=== PATIENT | male | born 1935 | race Caucasian/White ===

== ENCOUNTER 2020-09-02 07:53 | Outpatient (CLI) | payer MEDICARE, OTHER ==
[2020-09-02 08:15] LABS: BASOPHILS # (AUTO) 0.1 10^3/uL (0.0-0.1); BASOPHILS % (AUTO) 0.7 %; EOSINOPHILS # (AUTO) 0.4 10^3/uL (0.0-0.7); EOSINOPHILS % (AUTO) 4.7 %; HGB - HEMOGLOBIN 11.8 g/dL (14.0-18.0); LYMPHOCYTES # (AUTO) 1.7 10^3/uL (1.5-3.5); LYMPHOCYTES % (AUTO) 18.3 %; MEAN CORPUSCULAR HEMOGLOBIN 28.1 pg (27.0-31.0); MEAN CORPUSCULAR HGB CONC 31.1 g/dL (32.0-36.0); MEAN CORPUSCULAR VOLUME 90.2 fL (80.0-94.0); MEAN PLATELET VOLUME 8.3 fL (7.4-11.4); MONOCYTES # (AUTO) 0.5 10^3/uL (0.0-1.0); MONOCYTES % (AUTO) 5.7 %; NEUTROPHILS # (AUTO) 6.3 10^3/uL (1.5-6.6); NEUTROPHILS % (AUTO) 69.9 %; PLT - PLATELET COUNT 247 10^3/uL (130-450); RED CELL DISTRIBUTION WIDTH 14.3 % (12.0-15.0); WHITE BLOOD COUNT 9.1 x10^3/uL (4.8-10.8)
[2020-09-02 08:34] LABS: ALBUMIN 3.7 g/dL (3.2-5.5); ALBUMIN/GLOBULIN RATIO 0.9 (1.0-2.2); ALKALINE PHOSPHATASE 61 IU/L (42-121); ALT ALANINE AMINOTRANSFERASE 12 IU/L (10-60); AST ASPARTATE AMINOTRANSFERASE 19 IU/L (10-42); BILIRUBIN,TOTAL 0.5 mg/dL (0.2-1.0); BUN - BLOOD UREA NITROGEN 15 mg/dL (6-20); CALCIUM 9.2 mg/dL (8.5-10.3); CARBON DIOXIDE - CO2 28 mmol/L (21-32); CHLORIDE 100 mmol/L (101-111); CHOL/HDL RATIO 3.4 (<5.0); CHOLESTEROL 141 mg/dL; CREATININE 0.8 mg/dL (0.6-1.2); GLUCOSE 114 mg/dL (70-100); HDL CHOLESTEROL 42 mg/dL; LDL CHOLESTEROL,CALCULATED 81 mg/dL; LDL/HDL RATIO 1.9 (<3.6); SODIUM 141 mmol/L (135-145); TOTAL PROTEIN 7.7 g/dL (6.7-8.2); VLDL CHOLESTEROL 18 mg/dL
[2020-09-02 12:10] LABS: HEMOGLOBIN A1c% 5.9 % (4.27-6.07)
== END 2020-09-02 07:54 | disposition home or self-care (01) ==
LOC: LAB 07:53
PROVIDERS: ATTEND Family Medicine
DX: I71.4 Abdominal aortic aneurysm, without rupture (principal); E05.90 Thyrotoxicosis, unspecified without thyrotoxic crisis or storm; E11.9 Type 2 diabetes mellitus without complications; I25.2 Old myocardial infarction; J18.9 Pneumonia, unspecified organism; I95.9 Hypotension, unspecified; I25.10 Atherosclerotic heart disease of native coronary artery without angina pectoris; J43.9 Emphysema, unspecified
CPT/HCPCS: 36415; 80053; 80061; 83036; 83721; 84443; 85025

== ENCOUNTER 2021-04-12 14:40 | Outpatient (CLI) | payer MEDICARE, OTHER | END 2021-04-12 14:41 | disposition critical access hospital (66) | LOC: EMS 14:40 | DX: R53.1 Weakness (principal) | CPT/HCPCS: A0425; A0427 ==

== ENCOUNTER 2021-04-12 15:05 | Inpatient (IN) | payer MEDICARE, OTHER ==
[2021-04-12] MEDS ORDERED: SODIUM CHLORIDE 0.9% 1,000 ML IV STA (15:33)
--- NOTE | 2021-04-12 15:36 | ED Physician Documentation ---
PD HPI ALTERED MENTAL STATUS - Stated complaint Stated Complaint: BP ISSUE - History obtained from History obtained from: Patient, Family ( by phone) - Additional information Additional information: Much of the history from by phone: confused since last night and slurred speech. Very tired. Low BP at [facility] about 90/40 Urine cath x 2-3 years. Colon CA with colostomy Not demented at baseline, but confused now since last night. Had "kidney infection" a few weeks ago tx with abx, but not sure what Meds Vit D glucophage lipitor AND zocor per prinivil 2.5 daily Toprol prilosec ASA Review of Systems Unable to obtain: Confused PD PAST MEDICAL HISTORY - Allergies Allergies/Adverse Reactions: Allergies Allergy/AdvReac Type Severity Reaction Status Date / Time codeine Allergy Unknown Verified 04/12/21 15:32 oxybutynin Allergy Unknown Verified 04/12/21 15:32 PD ED PE NORMAL - Vitals Vital signs reviewed: Yes - General General: Other (Alert and oriented to person and place but not time or events, frequent thick cough.) - HEENT HEENT: PERRL, EOMI - Neck Neck: Supple, no meningeal sign, No bony TTP - Cardiac Cardiac: RRR, No murmur - Respiratory Respiratory: No respiratory distress, Other (diminished at both bases) - Abdomen Abdomen: Non tender, Other (Colostomy left lower quadrants, Mchugh in place draining purulence urine.) - Back Back: No CVA TTP, No spinal TTP - Derm Derm: Normal color, Warm and dry - Extremities Extremities: No edema, No calf tenderness / cord - Neuro Eye Opening: Spontaneous Motor: Obeys Commands Verbal: Confused GCS Score: 14 Results - Vitals Vitals: Vital Signs - 24 hr 04/12/21 04/12/21 04/12/21 15:34 16:11 16:30 Temperature 37.9 C Heart Rate 99 99 108 H Respiratory 26 H 28 H 25 H Rate Blood Pressure 95/40 L 108/48 L 125/66 O2 Saturation 94 96 100 04/12/21 04/12/21 04/12/21 17:00 17:30 18:00 Temperature 38.5 C H Heart Rate 113 H 114 H 116 H Respiratory 24 28 H 29 H Rate Blood Pressure 100/60 121/62 111/59 L O2 Saturation 100 92 93 04/12/21 04/12/21 04/12/21 18:30 19:00 19:30 Temperature 37.9 C Heart Rate 109 H 107 H 109 H Respiratory 28 H 29 H 29 H Rate Blood Pressure 94/50 L 90/53 L 88/50 L O2 Saturation 100 98 92 Oxygen O2 Source Nasal cannula - Labs Labs: Laboratory Tests 04/12/21 04/12/21 04/12/21 15:50 15:55 15:55 WBC 20.9 H RBC 3.89 L Hgb 11.0 L Hct 34.7 L MCV 89.2 MCH 28.3 MCHC 31.7 L RDW 15.4 H Plt Count 157 MPV 8.7 Neut # (Auto) Not Reportable Lymph # (Auto) Not Reportable Woodson # (Auto) Not Reportable Eos # (Auto) Not Reportable Baso # (Auto) Not Reportable Absolute Nucleated RBC Not Reportable Total Counted 100 Band Neuts % (Manual) 3 Abnorm Lymph % (Manual) 0 Nucleated RBC % Not Reportable Neutrophils # (Manual) 19.6 H Lymphocytes # (Manual) 1.3 L Monocytes # (Manual) 0.0 Eosinophils # (Manual) 0.0 Basophils # (Manual) 0.0 Differential Comment MANUAL DIFFERENTIAL Platelet Estimate NORMAL (130-450,000) Platelet Morphology NORMAL APPEARANCE RBC Morph Micro Appear NORMAL APPEARANCE Sodium 132 L Potassium 5.0 Chloride 94 L Carbon Dioxide 24 Anion Gap 14.0 H BUN 36 H Creatinine 2.4 H Estimated GFR (MDRD) 26 L Glucose 130 H Lactic Acid Calcium 8.0 L Total Bilirubin 0.9 AST 30 ALT 16 Alkaline Phosphatase 63 Total Protein 6.8 Albumin 3.2 Globulin 3.6 Albumin/Globulin Ratio 0.9 L Urine Color ORANGE Urine Clarity HAZY Urine pH 5.5 Ur Specific [place] 1.015 Urine Protein Urine Glucose (UA) Urine Ketones Urine Occult Blood Urine Nitrite Urine Bilirubin NEGATIVE Urine Urobilinogen Ur Leukocyte Esterase Urine RBC 11-25 H Urine WBC >25 H Ur Squamous Epith Cells NONE SEEN Urine Bacteria Many H Urine Culture Comments INDICATED Nasal Adenovirus (PCR) Nasal B. parapertussis DNA (PCR) Nasal Coronavir 229E PCR Nasal Coronavir HKU1 PCR Nasal Coronavir NL63 PCR Nasal Coronavir OC43 PCR Nasal Enterovir/Rhinovir PCR Nasal Influenza B PCR Nasal Influenza A PCR Nasal Parainfluen 1 PCR Nasal Parainfluen 2 PCR Nasal Parainfluen 3 PCR Nasal Parainfluen 4 PCR Nasal RSV (PCR) Nasal B.pertussis DNA PCR Nasal C.pneumoniae (PCR) Augustine Human Metapneumo PCR Nasal M.pneumoniae (PCR) Nasal SARS-CoV-2 (PCR) 04/12/21 04/12/21 04/12/21 15:55 17:53 19:09 WBC RBC Hgb Hct MCV MCH MCHC RDW Plt Count MPV Neut # (Auto) Lymph # (Auto) Woodson # (Auto) Eos # (Auto) Baso # (Auto) Absolute Nucleated RBC Total Counted Band Neuts % (Manual) Abnorm Lymph % (Manual) Nucleated RBC % Neutrophils # (Manual) Lymphocytes # (Manual) Monocytes # (Manual) Eosinophils # (Manual) Basophils # (Manual) Differential Comment Platelet Estimate Platelet Morphology RBC Morph Micro Appear Sodium Potassium Chloride Carbon Dioxide Anion Gap BUN Creatinine Estimated GFR (MDRD) Glucose Lactic Acid 3.4 H* 3.3 H* Calcium Total Bilirubin AST ALT Alkaline Phosphatase Total Protein Albumin Globulin Albumin/Globulin Ratio Urine Color Urine Clarity Urine pH Ur Specific [place] Urine Protein Urine Glucose (UA) Urine Ketones Urine Occult Blood Urine Nitrite Urine Bilirubin Urine Urobilinogen Ur Leukocyte Esterase Urine RBC Urine WBC Ur Squamous Epith Cells Urine Bacteria Urine Culture Comments Nasal Adenovirus (PCR) NOT DETECTED Nasal B. parapertussis DNA (PCR) NOT DETECTED Nasal Coronavir 229E PCR NOT DETECTED Nasal Coronavir HKU1 PCR NOT DETECTED Nasal Coronavir NL63 PCR NOT DETECTED Nasal Coronavir OC43 PCR NOT DETECTED Nasal Enterovir/Rhinovir PCR NOT DETECTED Nasal Influenza B PCR NOT DETECTED Nasal Influenza A PCR NOT DETECTED Nasal Parainfluen 1 PCR NOT DETECTED Nasal Parainfluen 2 PCR NOT DETECTED Nasal Parainfluen 3 PCR NOT DETECTED Nasal Parainfluen 4 PCR NOT DETECTED Nasal RSV (PCR) NOT DETECTED Nasal B.pertussis DNA PCR NOT DETECTED Nasal C.pneumoniae (PCR) NOT DETECTED Augustine Human Metapneumo PCR NOT DETECTED Nasal M.pneumoniae (PCR) NOT DETECTED Nasal SARS-CoV-2 (PCR) NOT DETECTED - Rads (name of study) 1v chest Radiology: EMP read contemporaneously (NAD) CT KUB Radiology: EMP read contemporaneously PD MEDICAL DECISION MAKING - ED course ED course: CT KUB Mild to moderate right hydronephrosis and hydroureter without a cause of obstruction seen, bilateral perinephric fat stranding, mild atrophy of each kidney, bladder decompressed with Mchugh in place, bilobed AAA measuring 6.1 cm and 6 cm distally, 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 85 yo with transient hypotension and e/o sepsis with leukocytosis, lactic acidosis. CT KUB to eval for obstruction. Has AAA, needs f/u. Also mild to moderate right hydronephrosis of unclear etiology. Case d/w [facility] by phone. She reviewed prior records. No recent cultures. No prior imaging to give an acuity for the hydronephrosis. Suggests changing mchugh and empiric IV abx and only consider xfer if not improving. D/W with by phone, AAA is known and d/w it needs f/u [facility] surgery Dr. Escoto will admit - Critical Care Time(min): 45 Time Includes: Direct patient care, Review records, Reassess patient, Document care, Coordinate care, Medical consult, Family consult for tx dec Data interpretation: Labs, Pulse ox Procedures included in critical care time: Peripheral IV - Sepsis Event Sepsis Onset Date: 04/12/21 Sepsis Onset Time: 16:00 Current Stage of Sepsis: Sepsis Initial Hypotension: Not hypotensive Possible source of Sepsis: Genitourinary Mental/Cognitive Status: Confused, Lethargic Reason for not giving 30ml/kg crystalloid fluids: Not in septic shock Capillary refill: Less than 2 seconds Peripheral Pulse Strength: 2+ Slightly Diminished Peripheral Pulse Location: Radial Departure - Departure Disposition: 66 [facility] DC/Xfer Clinical Impression: KB (acute kidney injury) UTI (urinary tract infection) Qualifiers: Urinary tract infection type: catheter-associated UTI Indwelling urinary catheter type: indwelling urethral catheter Encounter type: initial encounter Qualified Code(s): T83.511A - Infection and inflammatory reaction due to indwelling urethral catheter, initial encounter Sepsis Qualifiers: Sepsis type: sepsis due to unspecified organism Sepsis acute organ dysfunction status: with acute organ dysfunction Severe sepsis acute organ dysfunction type: acute renal failure Acute renal failure type: unspecified AAA (abdominal aortic aneurysm) Qualifiers: Presence of rupture: without rupture Qualified Code(s): I71.4 - Abdominal aortic aneurysm, without rupture Condition: Serious
[2021-04-12 16:05] LABS: BASOPHILS % (AUTO) 0.2 %; EOSINOPHILS % (AUTO) 1.2 %; HCT - HEMATOCRIT 34.7 % (42.0-52.0); LYMPHOCYTES % (AUTO) 1.5 %; MEAN CORPUSCULAR HEMOGLOBIN 28.3 pg (27.0-31.0); MEAN CORPUSCULAR HGB CONC 31.7 g/dL (32.0-36.0); MEAN CORPUSCULAR VOLUME 89.2 fL (80.0-94.0); MEAN PLATELET VOLUME 8.7 fL (7.4-11.4); MONOCYTES % (AUTO) 2.9 %; NEUTROPHILS % (AUTO) 93.5 %; PLT - PLATELET COUNT 157 10^3/uL (130-450); RED BLOOD COUNT 3.89 10^6/uL (4.70-6.10); RED CELL DISTRIBUTION WIDTH 15.4 % (12.0-15.0); WHITE BLOOD COUNT 20.9 x10^3/uL (4.8-10.8)
[2021-04-12 16:05] LABS: BILIRUBIN,URINE NEGATIVE (NEGATIVE); PH,URINE 5.5 PH (5.0-7.5)
[2021-04-12 16:10] LABS: CLARITY,URINE HAZY (CLEAR)
[2021-04-12 16:15] LABS: ALBUMIN 3.2 g/dL (3.2-5.5); ALBUMIN/GLOBULIN RATIO 0.9 (1.0-2.2); BILIRUBIN,TOTAL 0.9 mg/dL (0.2-1.0); CREATININE 2.4 mg/dL (0.6-1.2); TOTAL PROTEIN 6.8 g/dL (6.7-8.2)
[2021-04-12 16:19] LABS: LACTIC ACID, VENOUS 3.4 mmol/L (0.5-2.2)
[2021-04-12] MEDS ORDERED: PIPERACILLIN/TAZOBACTAM 3.375 GM in SODIUM CHLORIDE 0.9% MINIBAG 100 ML IV STA (16:21)
[2021-04-12 16:24] LABS: SQUAMOUS EPITHELIAL CELL,UR NONE SEEN (<= Few); WBC,URINE >25 /HPF (0-3)
[2021-04-12 16:25] LABS: BACTERIA,URINE Many /HPF (None Seen)
--- NOTE | 2021-04-12 16:25 | XRAY Report ---
PROCEDURE: Chest 1 View X-Ray INDICATIONS: cough TECHNIQUE: One view of the chest was acquired. COMPARISON: None FINDINGS: Surgical changes and devices: Post CABG changes are seen. Lungs and pleura: No pleural effusions or pneumothorax. Lungs are clear. Mediastinum: Mediastinal contours appear normal. Heart size is normal. Bones and chest wall: No suspicious bony lesions. Age-appropriate degenerative changes are seen. Overlying soft tissues appear unremarkable. IMPRESSION: No duglas, focal infiltrates are seen. Postoperative and degenerative changes are seen. Reviewed by: Kaleb Matthews MD on 04/12/2021 3:24 PM AKMILES Approved by: Kaleb Matthews MD on 04/12/2021 3:24 PM AKDT Station ID: [id number]
[2021-04-12 16:29] LABS: ABNORMAL LYMPHS % (MANUAL) 0 %
[2021-04-12 16:35] LABS: BAND NEUTROPHILS % (MANUAL) 3 %; DIFFERENTIAL COMMENT MANUAL DIFFERENTIAL; LYMPHOCYTES # (MANUAL) 1.3 10^3/uL (1.5-3.5); LYMPHOCYTES % (MANUAL) 6 %; NEUTROPHILS # (MANUAL) 19.6 10^3/uL (1.5-6.6); PLATELET ESTIMATE, MANUAL NORMAL (130-450,000) (NORMAL); PLATELET MORPHOLOGY NORMAL APPEARANCE (NORMAL); RBC MORPHOLOGY (MULTIPLE) NORMAL APPEARANCE (NORMAL)
[2021-04-12] MEDS ORDERED: LACTATED RINGERS 500 ML IV ONE (16:35)
--- NOTE | 2021-04-12 18:32 | CT Report ---
PROCEDURE: Abdomen/Pelvis WO INDICATIONS: urosepsis with zach TECHNIQUE: Noncontrast 5 mm thick sections acquired from the diaphragms to the symphysis. 5 mm coronal and sagi ttal reformats were then performed. For radiation dose reduction, the following was used: automated exposure control, adjustment of mA and/or kV according to patient size. COMPARISON: Correlation is made with the accompanying chest radiograph, 04/12/2021. FINDINGS: Image quality: Excellent. ABDOMEN: Lung bases: Likely atelectasis or scarring can be seen at the lung bases. There is at least moderate coronary artery calcification. Heart size is normal. Solid organs: Liver and spleen are normal in size. Gallbladder wall does not appear thickened. P ancreas is normal in contours. No adrenal nodules. The kidneys are mildly atrophic. Atherosclerotic calcification can be seen of the kidneys, without fr ank kidney stones. There is mild to moderate right-sided hydroureter and hydronephrosis, yet without a cause of hydronephrosis seen. Both kidneys demonstrate perinephric fat stranding. Peritoneum and bowel: There is distal colectomy change, with a left lower quadrant colostomy. Herniat ed fat can be seen along the ostomy site. No dilated loops of small bowel are seen. Nodes and vessels: No retroperitoneal or mesenteric adenopathy by size criteria. There is a proximal abdominal aortic aneurysm seen that measures 6.1 cm AP. There is a distal abdominal aortic aneurysm seen, which measures 6 cm AP. Extensive atherosclerotic calcification is seen. There is a focal mild aneurysm seen of the left common iliac artery, 2.1 cm. Miscellaneous: There is herniated fat seen along the left lower quadrant ostomy site. PELVIS: Genitourinary: Urinary bladder is decompressed by Paige catheter. The Paige bladder is low-lying. Pro statectomy change is seen. Miscellaneous: No inguinal adenopathy. Bilateral fat-containing inguinal hernias are seen. Bones: No suspicious bony lesions. No vertebral body compression fractures. Mild levoconvex scolio tic curvature is seen. Relatively prominent degenerative changes can be seen throughout. IMPRESSION: Mild to moderate right kidney hydronephrosis and hydroureter, without a cause of obstruc tion seen. Bilateral perinephric fat stranding can be seen. Mild atrophy of each kidney. The bladder is decompressed by a Paige catheter. The Paige bladder is low-lying. Bilobed abdominal aortic aneurysm, measuring 6.1 cm proximally AP and 6 m distally AP. Focal mild aneurysm seen of the left common iliac artery, 2.1 cm. Distal colectomy, with left lower quadrant colostomy. There is herniated fat seen along the colostomy site. Incidental note is made of: Likely atelectasis or scarring seen at the lung bases At least moderate coronary artery calcification Prostatectomy Levoconvex scoliosis Reviewed by: Kaleb Matthews MD on 04/12/2021 5:31 PM AKDT Approved by: Kaleb Matthews MD on 04/12/2021 5:31 PM AKDT Station ID: [id number]
[2021-04-12] MEDS ORDERED: ACETAMINOPHEN 325 MG TABLET PO STA (18:34)
[2021-04-12 18:58] LABS: B. PARAPERTUSSIS- RESP PCR PAN NOT DETECTED; B. PERTUSSIS- RESP PCR PANEL NOT DETECTED; C. PNEUMONIAE- RESP PCR PANEL NOT DETECTED; CORONAVIRUS 229E-RESP PCR NOT DETECTED; CORONAVIRUS HKU1-RESP PCR NOT DETECTED; CORONAVIRUS NL63-RESP PCR NOT DETECTED; CORONAVIRUS OC43-RESP PCR NOT DETECTED; HUMAN METAPNEUMOVIRUS NOT DETECTED; INFLUENZA A- RESP PCR PANEL NOT DETECTED; INFLUENZA B - RESP PCR PANEL NOT DETECTED; M. PNEUMONIAE- RESP PCR PANEL NOT DETECTED; PARAINFLUENZA VIRUS 1 NOT DETECTED; PARAINFLUENZA VIRUS 2 NOT DETECTED; PARAINFLUENZA VIRUS 3 NOT DETECTED; PARAINFLUENZA VIRUS 4 NOT DETECTED; RHINOVIRUS/ENTEROVIRUS NOT DETECTED; RSV- RESP PCR PANEL NOT DETECTED; SARS-CoV-2 -RESP PCR PANEL NOT DETECTED
[2021-04-12] MEDS ORDERED: LIDOCAINE 2% URO-JET 5 ML SYRINGE UR STA (19:14)
[2021-04-12] MEDS ORDERED: ONDANSETRON 4 MG/2 ML VIAL IVP PRN (19:37)
[2021-04-12] MEDS ORDERED: SODIUM CHLORIDE FLUSH 0.9% 10 ML SYRINGE IVP PRN (19:37)
[2021-04-12 19:48] LABS: LACTIC ACID, VENOUS 3.3 mmol/L (0.5-2.2)
--- NOTE | 2021-04-12 19:49 | HISTORY & PHYSICAL EXAMINATION ---
Chief Complaint - Chief Complaint Chief Complaint: weakness, hypotension History of Present Illness - Admitted From Admitted From:: [facility] ED - History Obtained From Records Reviewed: yes History obtained from: patient's daughter (Zahra) - History of Present Illness HPI Comment/Other: Patient is an 85-year-old male with medical history significant for coronary artery disease status post CABG, severe emphysema, AAA, history of carotid arter y stenosis status post bilateral carotid endarterectomy, history of rectal cancer s/p colostomy, history of prostate cancer with chronic indwelling Mchugh, Diabetes mellitus on metformin who was brought to the ED via EMS with low blood pressure. He resides at [facility] in [place] with his . It was reported that he has been in bed for the past 1.5 days. He has been confused and unsteady on his feet. When his blood pressure was checked today it was noted to be low. This was reported to his daughter Zahra who is very involved in his care. She requested that EMS be called and the patient be taken to the ED. In the emergent department lab work included a CBC which showed a WBC of 20.9. He also had a lactic acid of 3.4. He was noted to be tachycardic and systolic blood pressure was in the 90s. The patient's daughter reports that he was diagnosed with a UTI on 03/31/2021 and was placed on Keflex which he has been taking daily. He has a chronic indwelling catheter which he changes and last changed yesterday 04/11/21. However since doing so he has been complaining of bladder spasms. He was also seen by his urologist on 03/31/2021 but no additional instructions were given. After urine and blood cultures were obtained the patient was given 2.5 L of lactated Ringer's and started on Zosyn. Despite this, his systolic blood pressure dropped to 76. As a result he is being admitted to the ICU for further management. At bedside he appears to be resting comfortably. It was reported that he was initially significantly confused at time of presentation in the ED. His mentati on has improved however he is not able to give a reliable history. He denies chest pain, dyspnea, abdominal pain, nausea, vomiting, fever or chills. He has an audible wheeze at baseline. This is due to severe emphysema. He also has a colostomy bag in place. He had a CT of the abdomen pelvis done which showed hydronephrosis but no obstructing stone. It also commented on a AAA which is currently 6.1 cm in diameter. History - Past Medical History Cardiovascular: reports: Coronary artery disease, Other (AAA, Carotid artery stenosis) Respiratory: reports: Emphysema, Other (Lung mass) Endocrine/Autoimmune: reports: Type 2 diabetes GI: reports: Other (Hx of colon cancer) : reports: Incontinence, Indwelling catheter, Other (Hx of prostate cancer) - Past Surgical History Cardiovascular: reports: CABG, Cardiac catheterization, Other (bilateral Carotid artery endarterectomy) - Family & Social History Family History Comment/Other: None germane to patient's presentation Living arrangement: Assisted living ([facility]) Living Situation: With spouse/s.o. - Substance History Use: Uses substance without health or social issues: Other (Patient has a 60+ pack per year smoking history. He quit smoking 6 years ago. He has started drinking more lately. He drinks about 1/5th of vodka weekly.) - POLST Patient has POLST: Yes POLST Status: DNR Meds/Allgy - Allergies Allergies/Adverse Reactions: Allergies Allergy/AdvReac Type Severity Reaction Status Date / Time codeine Allergy Unknown Verified 04/12/21 15:32 oxybutynin Allergy Unknown Verified 04/12/21 15:32 Review of Systems - Constitutional Constitutional: reports: Weakness, Poor appetite, Weight loss. denies: Fatigue, Fever, Chills - Eyes Eyes: denies: Pain - Ears, Nose & Throat Ears, Nose & Throat: denies: Ear pain, Vertigo, Sore throat - Cardiovascular Cariovascular: denies: Irregular heart rate, Palpitations, Chest pain, Edema, Lightheadedness, Syncope - Respiratory Respiratory: reports: Wheezing, SOB with exertion. denies: Cough, Sputum production - Gastrointestinal Gastrointestinal: denies: Abdominal pain, Abdominal distention, Nausea, Vomiting - Genitourinary Genitourinary: reports: Incontinence (chronic mchugh cathteter in place). berenice es: Hematuria - Musculoskeletal Musculoskeletal: denies: Muscle pain, Back pain, Muscle aches - Integumentary Integumentary: denies: Rash, Pruritis, Lesions - Neurological Neurological: reports: General weakness. denies: Headache, Dizziness - Psychiatric Psychiatric: denies: Depression, Anxiety - Endocrine Endocrine: denies: Polyuria, Polydypsia - Hematologic/Lymphatic Hematologic/Lymphatic: denies: Anemia, Bruising, Petechiae Prior Level of Functionality: Patient lives at [facility] in [place] with his . He is independent of activities of daily living. He ambulates without any walking aid. Exam - Vital Signs Vital Signs: Vital Signs x48h Temp Pulse Resp BP Pulse Ox 04/12/21 19:00 37.9 C 107 H 29 H 90/53 L 98 04/12/21 18:30 109 H 28 H 94/50 L 100 04/12/21 18:00 38.5 C H 116 H 29 H 111/59 L 93 04/12/21 17:30 114 H 28 H 121/62 92 04/12/21 17:00 113 H 24 100/60 100 04/12/21 16:30 108 H 25 H 125/66 100 04/12/21 16:11 99 28 H 108/48 L 96 04/12/21 15:34 37.9 C 99 26 H 95/40 L 94 - Physical Exam General Appearance: positive: No acute distress, Alert Eyes Bilateral: positive: PERRL, EOMI ENT: positive: No signs of dehydration Neck: positive: No JVD, Trachea midline Respiratory: positive: Chest non-tender, No respiratory distress, Wheezes (audible) Cardiovascular: positive: Tachycardia (sinus) Abdomen: positive: Non-tender, No organomegaly, Nml bowel sounds, No distention, Other (colostomy bag in place). negative: Guarding, Rebound Back: positive: Nml inspection Skin: positive: Color nml, Warm, Dry Extremities: positive: Non-tender, Full ROM, No pedal edema Neurologic/Psychiatric: positive: Oriented x3, Mood/affect nml Sepsis Event Note (H) - Evaluation Current Stage of Sepsis: Sepsis Possible source of Sepsis: positive: Genitourinary - Sepsis Criteria Sepsis Criteria: Recorded Heart Rate greater than 90 bpm, Recorded Respiratory Rate greater than 20, WBC count greater than 12,000 or less than 4000, [employer]OADB[employer] TECHNICIAN: altered consciousness (unrelated to primary neuro pathology), SBP less than 90 mmHg, Metabolic: lactate > 2 mmol/L Conclusion/Plan - Problem List (1) Sepsis Conclusion/Plan: Secondary to UTI. Patient has a chronic indwelling Mchugh catheter. This was changed in the ED. Urine and blood cultures pending. Patient was given 2-1/2 L of Lactated Ringer's in the ED. Systolic blood pressure at time of admission was in the 70s. WBC was 20.9 and lactic acid 3.4 Patient will be administered another liter of normal saline. Then fluids will be continued with normal saline at 100 mL/h. Zosyn 3.375 g every 6 hours IV ordered. We will trend lactic acid Qualifiers: Sepsis type: sepsis due to unspecified organism Sepsis acute organ dysfunction status: with acute organ dysfunction Severe sepsis acute organ dysfunction type: acute renal failure Acute renal failure type: unspecified (2) UTI (urinary tract infection) Conclusion/Plan: Patient has a chronic indwelling Mchugh catheter He self changes. He changed it yesterday. The Mchugh catheter was again changed in the ED. Patient was recently placed on Keflex in the outpatient setting on 03/31/2021 which she has been taking since then. Qualifiers: Urinary tract infection type: catheter-associated UTI Indwelling urinary catheter type: indwelling urethral catheter Encounter type: initial encounter Qualified Code(s): T83.511A - Infection and inflammatory reaction due to indwelling urethral catheter, initial encounter; N39.0 - Urinary tract infection, site not specified (3) AAA (abdominal aortic aneurysm) Conclusion/Plan: Patient's AAA is known. However surgery has not been possible due to the patient's baseline comorbidities. The patient's daughter Zahra who accompanies him to all his appointments states that cardiovascular surgery is concerned that the patient might not survive the procedure. AAA on CT scan of abdomen pelvis was 6.1cm today. Qualifiers: Presence of rupture: without rupture Qualified Code(s): I71.4 - Abdominal aortic aneurysm, without rupture (4) Weight loss Conclusion/Plan: Patient has been losing onn average 25lbs a year for the past 2 years. This coincides with his teeth being pulled out. It seems his dentures are poorly fitting. Family reports he mainly sustains on candies and alcohol. He does not like dietary supplements like Ensure. (5) Lung mass Conclusion/Plan: This is known. Patient has a 60+ pack year smoking history. Quit smoking 6 years ago. Biopsy of the lung mass has not been possible because there has been significant concern that he might not survive the procedure. The patient has severe emphysema and audibly wheezing at baseline (6) CAD (coronary artery disease) Conclusion/Plan: History of CABG about 20 years ago. Patient had an PA last year. We will request records from [facility]. Patient is swine nutritionist is Dr. Cross in [place] (7) Diabetes mellitus Conclusion/Plan: We will hold patient's Metformin due to lactic acidosis of 3.4. Accu-Cheks before every meal and at bedtime, sliding scale insulin. Qualifiers: Diabetes mellitus type: type 2 (8) Emphysema lung Conclusion/Plan: Severe. Audible wheezing at baseline Will order duoneb prn (9) Alcohol use disorder, mild, abuse Conclusion/Plan: Patient has started drinking more lately. He drinks about 1/5 of vodka a week CIWA protocol ordered. - Lab Results Fish Bones: 04/12/21 15:55 04/12/21 15:55 Core Measures - Anticipated LOS I expect patient to be DC'd or transferred within 96 hours.: Yes - DVT/VTE - Prophylaxis VTE/DVT Device ordered at admit?: Yes VTE/DVT Prophylaxis med ordered at admit?: Yes
[2021-04-12] MEDS ORDERED: SODIUM CHLORIDE 0.9% 1,000 ML IV SCH (20:00)
[2021-04-12] MEDS ORDERED: SODIUM CHLORIDE 0.9% 500 ML IV ONE (21:48)
[2021-04-13] MEDS: PIPERACILLIN/TAZOBACTAM 3.375 GM in SODIUM CHLORIDE 0.9% MINIBAG 100 ML IV SCH ×2 (01:04→12:59)
[2021-04-13] MEDS ORDERED: FUROSEMIDE 20 MG/2 ML VIAL IVP STA (03:22)
[2021-04-13] MEDS ORDERED: diphenhydrAMINE INJ 50 MG/ML VIAL IVP STA (03:23)
[2021-04-13] MEDS: SODIUM CHLORIDE FLUSH 0.9% 10 ML SYRINGE IVP SCH ×4 (03:35→22:46)
[2021-04-13] MEDS: IPRATROPIUM/ALBUTEROL 3 ML NEB INH PRN (03:39)
[2021-04-13 03:58] LABS: BASOPHILS % (AUTO) 0.2 %; HCT - HEMATOCRIT 35.1 % (42.0-52.0); HGB - HEMOGLOBIN 10.8 g/dL (14.0-18.0); LYMPHOCYTES % (AUTO) 2.7 %; MEAN CORPUSCULAR HEMOGLOBIN 28.5 pg (27.0-31.0); MEAN CORPUSCULAR HGB CONC 30.8 g/dL (32.0-36.0); MEAN CORPUSCULAR VOLUME 92.6 fL (80.0-94.0); MEAN PLATELET VOLUME 9.7 fL (7.4-11.4); MONOCYTES % (AUTO) 2.8 %; NEUTROPHILS % (AUTO) 90.1 %; PLT - PLATELET COUNT 136 10^3/uL (130-450); RED BLOOD COUNT 3.79 10^6/uL (4.70-6.10); RED CELL DISTRIBUTION WIDTH 15.6 % (12.0-15.0); WHITE BLOOD COUNT 16.2 x10^3/uL (4.8-10.8)
[2021-04-13 03:59] LABS: ABNORMAL LYMPHS % (MANUAL) 0 %
[2021-04-13 04:07] LABS: CALCIUM 7.7 mg/dL (8.5-10.3); CREATININE 2.4 mg/dL (0.6-1.2); POTASSIUM 4.5 mmol/L (3.5-5.0)
[2021-04-13 04:17] LABS: BAND NEUTROPHILS % (MANUAL) 3 %; DIFFERENTIAL COMMENT MANUAL DIFFERENTIAL; EOSINOPHILS # (MANUAL) 0.5 10^3/uL (0-0.7); LYMPHOCYTES # (MANUAL) 0.6 10^3/uL (1.5-3.5); LYMPHOCYTES % (MANUAL) 4 %; MONOCYTES # (MANUAL) 0.6 10^3/uL (0.0-1.0); NEUTROPHILS # (MANUAL) 14.4 10^3/uL (1.5-6.6); PLATELET ESTIMATE, MANUAL NORMAL (130-450,000) (NORMAL); PLATELET MORPHOLOGY NORMAL APPEARANCE (NORMAL); RBC MORPHOLOGY (MULTIPLE) NORMAL APPEARANCE (NORMAL); WBC MORPHOLOGY (MULTIPLE) NORMAL APPEARANCE (NORMAL)
[2021-04-13] MEDS: INSULIN ASPART 300 UNIT/3 ML PEN SUBQ SCH ×4 (08:25→21:20)
[2021-04-13] MEDS: ACETAMINOPHEN 325 MG TABLET PO PRN ×2 (08:26→14:58)
[2021-04-13] MEDS: PRENATAL VITAMIN TABLET PO SCH (08:26)
[2021-04-13] MEDS: THIAMINE 100 MG TABLET PO SCH (08:26)
[2021-04-13 10:17] LABS: ESTIMATED AVERAGE GLUCOSE 126 mg/dL (70-100)
--- NOTE | 2021-04-13 12:08 | PHARMACY PROGRESS NOTE ---
- Best Possible Medication History Admit Date and Time: 04/12/211936 Processed by: Pharmacy Medication History completed: Yes Secondary Source(s): Facility MAR as ONLY source As the person ultimately responsible for medication therapy, providers are able to order a medication from an existing home medication list in [facility] via the "Reconcile Routine" prior to Confirmation of that medication by senior safety support manager. Such practice is discouraged except when the physician, in their clinical judgment, deems that a medical need exists for a medication without regard to previous use.
[2021-04-13] MEDS: LACTATED RINGERS 1,000 ML IV SCH (14:57)
[2021-04-13] MEDS: IBUPROFEN 400 MG TABLET PO PRN (18:57)
--- NOTE | 2021-04-13 19:32 | PROVIDER PROGRESS NOTE ---
Progress Note April 13, 2021 7:16 PM I have been following the patient throughout the day. His fevers and tachycardia been difficult to control. I have added Motrin every 6 hours to be alternated with Tylenol every 6 hours. Heart rate has come down from the 120s to 10 7-1 09 by this evening. I spoke to urology on-call at [facility]. She had been called last night and had gone to voicemail. She got the message today and call us back. Because the patient was still tachycardic, febrile, with an elevated white cell count, she felt that he might need an interventional nephrostomy tube. However interventional radiology is not available at [facility] today. I reviewed the case with her at length. He is growing out E. coli in his urine and blood. Medications are Tylenol, DuoNeb, Motrin, NovoLog, lactated Ringer's, Zofran, Zosyn, vitamin, thiamine. Vital signs: He has been febrile most of the day. Lowest temperature is 37.7. Highest temperature is 39.2. He has been tachycardic most of the day. Lowest pulse is 98 highest pulse was 120. Blood pressure has been 86 systolic up to 126. Diastolic 53-67. At 5 foot 10 inches tall he is 59.5 kg. Alert, talkative elderly gentleman. Very difficult for me to understand what he saying. Mumbles a lot. But cheerful and cooperative. Neck is supple. Shotty adenopathy. Coarse upper airway sounds. Occasionally wheezing. Occasionally coughing. He is tachypneic at 24 to 29 breaths/min. Requiring 3 L nasal cannula to oxygenate and 95% O2 sat. He is tachycardic with a regular rate and rhythm. Bounding heart rate. Abdomen has hypoactive bowel sounds, nondistended. He is eating 25 to 75% of his meals. Extremities are cool to touch on the legs. Thin. No edema. Neurologically completely disoriented. Very pleasant demented gentleman who is cooperative, follows prompting. Feeds himself. From a language perspective I am really not understanding anything he saying. Sodium 134. BUN 39. Creatinine 2.4. These are unchanged from admission. Lactic acid started at 3.3 and was 2.8 this morning. A1c 6%. White cell count 16.2. Came down from 20.9. Hemoglobin 10.8 and stable. Platelets 136. As already stated urine and blood culture growing E. coli. Sensitivities pending Assessment/plan 1. Sepsis. Continues to meet sepsis criteria. He has moderate hydronephrosis on CT. Is a candidate for interventional radiology but unfortunately interventional radiology is not available at [facility]. The urologist states that he may be candidate for intervention tomorrow, since it is Wednesday. We will continue to give IV antibiotics, support his blood pressure. Recontact [facility] in the morning. 2. Possible pyelonephritis/UTI. Hydronephrosis on CT. He has a chronic indwelling Paige catheter. Paige catheter changed the day before admission and on admission. Theoretically the Zosyn should be covering him for the E. coli. 3. Abdominal aortic aneurysm. Not a candidate for intervention according to the daughter. 4. Unintentional weight loss. Coincided with his teeth being pulled out and his dentures poorly fitting. Will consult with nutrition services. He is eating 75 to 100% of his meals. He is on a regular diet. We will change him to mechanical soft diet. 5. Type 2 diabetes mellitus. He is on sliding scale insulin. Glucose has been 86, 112, 132 today. A1c is very well controlled. No change other than sliding scale insulin at this time. 6. COPD with mild acute exacerbation. DuoNeb as needed. I hesitate to add systemic steroids in the face of sepsis. We will add inhaled steroids and long- acting bronchodilator. 7. History of alcohol abuse. He drinks 1/5 of vodka a week. Currently on vitamin supplementation. He is in alcohol withdrawal protocol and Ativan has not been needed. However, I wonder if some of his tachycardia is not only from the fever but possible alcohol withdrawal. We will add a very low-dose that is fixed scheduled for Ativan.
[2021-04-13] MEDS: LORazepam 0.5 MG TABLET PO SCH (19:56)
[2021-04-13] MEDS ORDERED: LACTATED RINGERS 1,000 ML IV ONE (22:31)
[2021-04-13] MEDS: PIPERACILLIN/TAZOBACTAM 2.25 GM in SODIUM CHLORIDE 0.9% MINIBAG 100 ML IV SCH (22:37)
[2021-04-14] MEDS ORDERED: MIN OIL/DIMETHICON/COCONUT OIL 92 GM TUBE TOP PRN (00:29)
[2021-04-14] MEDS ORDERED: LACTATED RINGERS 1,000 ML IV ONE (02:05)
[2021-04-14] MEDS: LACTATED RINGERS 1,000 ML IV SCH ×2 (03:02→14:59)
[2021-04-14] MEDS: LORazepam 0.5 MG TABLET PO SCH ×3 (04:01→19:44)
[2021-04-14 05:26] LABS: BASOPHILS % (AUTO) 0.5 %; EOSINOPHILS % (AUTO) 0.9 %; HCT - HEMATOCRIT 32.1 % (42.0-52.0); HGB - HEMOGLOBIN 10.1 g/dL (14.0-18.0); LYMPHOCYTES % (AUTO) 3.2 %; MEAN CORPUSCULAR HEMOGLOBIN 27.6 pg (27.0-31.0); MEAN CORPUSCULAR HGB CONC 31.5 g/dL (32.0-36.0); MEAN CORPUSCULAR VOLUME 87.7 fL (80.0-94.0); MEAN PLATELET VOLUME 9.4 fL (7.4-11.4); MONOCYTES % (AUTO) 3.4 %; NEUTROPHILS % (AUTO) 88.8 %; PLT - PLATELET COUNT 96 10^3/uL (130-450); RED BLOOD COUNT 3.66 10^6/uL (4.70-6.10); RED CELL DISTRIBUTION WIDTH 15.5 % (12.0-15.0); WHITE BLOOD COUNT 8.2 x10^3/uL (4.8-10.8)
[2021-04-14 05:31] LABS: ABNORMAL LYMPHS % (MANUAL) 0 %
[2021-04-14 05:34] LABS: CALCIUM 7.6 mg/dL (8.5-10.3); CREATININE 2.6 mg/dL (0.6-1.2); INR 1.4 (0.8-1.2); POTASSIUM 4.2 mmol/L (3.5-5.0); PT - PROTHROMBIN TIME 15.3 secs (9.9-12.6)
[2021-04-14 05:52] LABS: BAND NEUTROPHILS % (MANUAL) 4 %; EOSINOPHILS # (MANUAL) 0.1 10^3/uL (0-0.7); LYMPHOCYTES # (MANUAL) 0.1 10^3/uL (1.5-3.5); LYMPHOCYTES % (MANUAL) 1 %; MONOCYTES # (MANUAL) 0.1 10^3/uL (0.0-1.0)
[2021-04-14 05:54] LABS: DIFFERENTIAL COMMENT MANUAL DIFFERENTIAL; PLATELET ESTIMATE, MANUAL DECREASED (<130,000) (NORMAL); PLATELET MORPHOLOGY NORMAL APPEARANCE (NORMAL); RBC MORPHOLOGY (MULTIPLE) 2+ BURR CELLS (NORMAL); WBC MORPHOLOGY (MULTIPLE) NORMAL APPEARANCE (NORMAL)
[2021-04-14] MEDS: PIPERACILLIN/TAZOBACTAM 2.25 GM in SODIUM CHLORIDE 0.9% MINIBAG 100 ML IV SCH ×2 (07:02→15:03)
[2021-04-14] MEDS: BUDESONIDE 0.5 MG/2 ML NEB INH SCH ×2 (08:07→21:23)
[2021-04-14] MEDS: IPRATROPIUM/ALBUTEROL 3 ML NEB INH PRN ×2 (08:07→21:23)
[2021-04-14] MEDS: INSULIN ASPART 300 UNIT/3 ML PEN SUBQ SCH ×4 (08:25→21:06)
[2021-04-14] MEDS: PRENATAL VITAMIN TABLET PO SCH (08:28)
[2021-04-14] MEDS: THIAMINE 100 MG TABLET PO SCH (08:35)
[2021-04-14] MEDS: SODIUM CHLORIDE FLUSH 0.9% 10 ML SYRINGE IVP SCH ×2 (08:41→17:33)
--- NOTE | 2021-04-14 14:57 | XRAY Report ---
PROCEDURE: Chest for Line Placement INDICATIONS: Central line confirmation TECHNIQUE: One view of the chest was acquired. COMPARISON: 04/12/2021 FINDINGS: Surgical changes and devices: Right internal jugular central venous catheter tip is in the region of SVC. Median sternotomy wires and surgical clips are again seen.. Lungs and pleura: No pleural effusions or pneumothorax. Atelectasis/scarring in right upper lung fie ld is seen. No definite focal infiltrate. Chronic of the meniscus changes are seen. Mediastinum: Mediastinal contours appear normal. Heart size is normal. Bones and chest wall: No suspicious bony lesions. Overlying soft tissues appear unremarkable. IMPRESSION: Right internal jugular central venous catheter tip is in the region of SVC. COPD and right upper lung field scarring/atelectasis. No definite focal infiltrate or gross pneumothorax. Reviewed by: Junior Dean MD on 04/14/2021 2:56 PM PDT Approved by: Junior Dean MD on 04/14/2021 2:56 PM PDT Station ID: [id number]
[2021-04-14] MEDS ORDERED: SODIUM CHLORIDE FLUSH 0.9% 10 ML SYRINGE IVP PRN (16:15)
--- NOTE | 2021-04-14 17:34 | ANESTHESIA PROCEDURE NOTE ---
Anesth Central Line Template - Central Line Central Line Preparation: Consent Obtained Central line location: Right IJ Central line type: Triple lumen Central line catheter tip site resides: Superior vena cava (SVC) Central line aftercare: Chlorhexidine disc placed, Secured, Placement confirmed, No pneumothorax, No complications, Bundle checklist complete, Pt tolerated well
[2021-04-14] MEDS: ACETAMINOPHEN 325 MG TABLET PO PRN (19:44)
[2021-04-14] MEDS ORDERED: diltiaZEM INJ 125 MG in DEXTROSE 5% 100 ML IV SCH (20:00)
--- NOTE | 2021-04-14 20:18 | DISCHARGE SUMMARY ---
Discharge Summary Admit Date: 04/12/21 Discharge Date: 04/14/21 Discharging Provider: Vel Martinez Primary Care Provider: Jaci Stephens Code Status: Do Not Attempt Resuscitation Condition at Discharge: Critical Discharge Disposition: 02 Transfer Acute Care Hosp Discharge Facility Name: [facility] - DIAGNOSES Admission Diagnoses: Sepsis UTI Abdominal aortic aneurysm Weight loss Lung mass Coronary artery disease Diabetes mellitus Emphysema Alcohol use disorder Discharge Diagnoses with Status of Each Condition: Septic shock - ongoing. Pyelonephritis - ongoing. E. coli bacteremia - ongoing. Right hydronephrosis - ongoing. Acute kidney injury - ongoing. This is likely multifactorial related to prerenal and possibly ATN given the hypotension. He does have right hydronephrosis although it is felt unlikely that this will cause acute kidney injury and as he may have chronic kidney disease at baseline. Abdominal aortic aneurysm - stable. This is unknown AAA and on imaging it is 6.1 cm. He has not been a surgical candidate due to his multiple comorbidities. Lung mass - stable. This is a known mass. Reportedly, biopsy of lung mass has not been possible because there is concern that he might not survive the procedure given he has severe emphysema and audible wheezing at baseline. Coronary artery disease - stable. History of CABG. Chronic hypoxic respiratory failure - stable. On 4L at baseline. Chronic indwelling mchugh catheter - stable. This was exchanged in the emergency department. Diabetes mellitus - stable. Emphysema - stable. He is on 4L at baseline. - HPI History of Present Illness: H&P per Dr. Escoto: Patient is an 85-year-old male with medical history significant for coronary artery disease status post CABG, severe emphysema, AAA, history of carotid artery stenosis status post bilateral carotid endarterectomy, history of rectal cancer s/p colostomy, history of prostate cancer with chronic indwelling Mchugh, Diabetes mellitus on metformin who was brought to the ED via EMS with low blood pressure. He resides at [facility] in [place] with his . It was reported that he has been in bed for the past 1.5 days. He has been confused and unsteady on his feet. When his blood pressure was checked today it was noted to be low. This was reported to his daughter Zahra who is very involved in his care. She requested that EMS be called and the patient be taken to the ED. In the emergent department lab work included a CBC which showed a WBC of 20.9. He also had a lactic acid of 3.4. He was noted to be tachycardic and systolic blood pressure was in the 90s. The patient's daughter reports that he was diagnosed with a UTI on 03/31/2021 and was placed on Keflex which he has been taking daily. He has a chronic indwelling catheter which he changes and last changed yesterday 04/11/21. However since doing so he has been complaining of bladder spasms. He was also seen by his urologist on 03/31/2021 but no additional instructions were given. After urine and blood cultures were obtained the patient was given 2.5 L of lactated Ringer's and started on Zosyn. Despite this, his systolic blood pressure dropped to 76. As a result he is being admitted to the ICU for further management. At bedside he appears to be resting comfortably. It was reported that he was initially significantly confused at time of presentation in the ED. His mentation has improved however he is not able to give a reliable history. He denies chest pain, dyspnea, abdominal pain, nausea, vomiting, fever or chills. He has an audible wheeze at baseline. This is due to severe emphysema. He also has a colostomy bag in place. He had a CT of the abdomen pelvis done which showed hydronephrosis but no obstructing stone. It also commented on a AAA which is currently 6.1 cm in diameter. - HOSPITAL COURSE Hospital Course: He was admitted to the intensive care unit for severe sepsis secondary to urinary tract infection. CT in the emergency department did reveal right moderate hydronephrosis but there was no obvious source of obstruction. He was started empirically on IV Zosyn and given 2-1/2 L of IV fluids. He was borderline hypotensive but his mean arterial pressure remained greater than 65. Given he had a chronic indwelling Mchugh catheter, this was changed in the emerg ency department. His urine culture came back growing E. coli and his blood cultures also grew E. coli. The following day, he became hypotensive overnight but he responded well to further IV hydration as he received another 2 L of lactated Ringer's. Early this morning, his blood pressure dropped again and he was started on norepinephrine. He remains on norepinephrine at 8 mcg a minute. His E. coli came back resistant to multiple antibiotics. There was no note of whether this was sensitive to Zosyn or not but given he continued to be febrile and hypotensive, we switched him to cefepime IV which the E. coli was sensitive to. Throughout his hospitalization, multiple discussions were made with urology who did recommend transfer for nephrostomy tube. We spoke with urology at [facility] who told us that there was no intervention radiology available on Wednesday and so transfer was deferred that day. Given he is hypotensive today, we reached out to them again and unfortunately there are no beds available at [facility]. Given he now has septic shock, they felt [facility] be [facility] and therefore we contacted [facility] in [place]. We spoke with Dr. Geovany Morris of the ICU who graciously accepted the patient in transfer. The daytime hospitalist did speak with the patient's daughter to inform her of this. He is transferred via ALS. The daytime hospitalist did speak with Dr. Morris of the ICU who recommended initiating diltiazem drip given the patient is tachycardic with heart rates in the 130s. This was done prior to transfer. E. coli from the urine is resistant to ampicillin, ampicillin/sulbactam, cefazolin, ceftriaxone, ciprofloxacin, levofloxacin, trimethoprim, sulfamethoxazole. It is sensitive to cefepime, ertapenem, gentamicin, imipenem, nitrofurantoin, tobramycin. E. coli from the blood is resistant to ampicillin, ampicillin/sulbactam, ciprofloxacin, levofloxacin. It is sensitive to cefazolin, cefepime, ceftriaxone, ertapenem, gentamicin, imipenem, tobramycin, trimethoprim/sulfamethoxazole. - ALLERGIES Allergies/Adverse Reactions: Allergies Allergy/AdvReac Type Severity Reaction Status Date / Time codeine Allergy Unknown Verified 04/12/21 15:32 oxybutynin Allergy Unknown Verified 04/12/21 15:32 - MEDICATIONS Home Medications: Ambulatory Orders Medication Instructions Recorded Confirmed Aspirin [Kalida Aspirin] 81 mg PO DAILY 04/13/21 04/13/21 Atorvastatin Calcium 40 mg PO QPM 04/13/21 04/13/21 Lisinopril [Zestril] 1.25 mg PO DAILY 04/13/21 04/13/21 Metoprolol Succinate [Toprol Xl] 25 mg PO DAILY 04/13/21 04/13/21 Omeprazole [PriLOSEC] 20 mg PO DAILY 04/13/21 04/13/21 Sertraline HCl 100 mg PO DAILY 04/13/21 04/13/21 metFORMIN [Glucophage] 500 mg PO DAILY 04/13/21 04/13/21 - PHYSICAL EXAM AT DISCHARGE General Appearance: positive: Other (He appears in mild distress.) Eyes Bilateral: positive: Normal inspection, Conjunctivae nml ENT: positive: Other (Nasal cannula in place.) Neck: positive: Nml inspection Respiratory: positive: No respiratory distress, Wheezes (Faint expiratory wheezes.). negative: Rales, Rhonchi Cardiovascular: positive: No murmur, Tachycardia. negative: Bradycardia, Systolic murmur Abdomen: positive: Non-tender, No distention, Other (Colostomy left lower quadrant.). negative: Tenderness Back: negative: CVA tenderness (R), CVA tenderness (L) Skin: positive: Warm, Dry Extremities: positive: No pedal edema Neurologic/Psychiatric: negative: Disoriented to person, Disoriented to place Physical Exam Other/Comments: Vital Signs - 8 hr 04/14/21 04/14/21 04/14/21 13:00 14:00 15:00 Temperature 37 C 37.4 C 37.7 C Heart Rate [ 141 H 128 H 134 H Brachial] Heart Rate [ Monitoring electrodes] Respiratory 22 28 H 29 H Rate Blood Pressure 87/67 L 110/67 99/67 [Left Brachial artery] O2 Saturation 94 100 96 04/14/21 04/14/21 04/14/21 15:50 16:00 16:15 Temperature 37.9 C 37.9 C 38 C H Heart Rate [ 136 H 134 H 135 H Brachial] Heart Rate [ Monitoring electrodes] Respiratory 29 H 29 H 27 H Rate Blood Pressure 100/77 124/80 131/90 H [Left Brachial artery] O2 Saturation 96 97 96 04/14/21 04/14/21 04/14/21 16:45 17:00 18:00 Temperature 38.2 C H 38.3 C H Heart Rate [ 134 H 134 H 136 H Brachial] Heart Rate [ Monitoring electrodes] Respiratory 27 H 30 H 25 H Rate Blood Pressure 145/85 H 132/77 H 116/70 [Left Brachial artery] O2 Saturation 96 95 95 04/14/21 04/14/21 19:00 20:00 Temperature 38.3 C H 38.4 C H Heart Rate [ 136 H Brachial] Heart Rate [ 136 H Monitoring electrodes] Respiratory 25 H 29 H Rate Blood Pressure 112/69 122/75 [Left Brachial artery] O2 Saturation 96 96 - LABS Result Diagrams: 04/14/21 04:50 04/14/21 04:50 Other Lab Results: Laboratory Tests 04/12/21 04/12/21 04/12/21 15:50 15:55 15:55 WBC 20.9 H RBC 3.89 L Hgb 11.0 L Hct 34.7 L MCV 89.2 MCH 28.3 MCHC 31.7 L RDW 15.4 H Plt Count 157 MPV 8.7 Neut # (Auto) Not Reportable Lymph # (Auto) Not Reportable [place] # (Auto) Not Reportable Eos # (Auto) Not Reportable Baso # (Auto) Not Reportable Absolute Nucleated RBC Not Reportable Total Counted 100 Band Neuts % (Manual) 3 Abnorm Lymph % (Manual) 0 Nucleated RBC % Not Reportable Neutrophils # (Manual) 19.6 H Lymphocytes # (Manual) 1.3 L Monocytes # (Manual) 0.0 Eosinophils # (Manual) 0.0 Basophils # (Manual) 0.0 Differential Comment MANUAL DIFFERENTIAL WBC Morphology Platelet Estimate NORMAL (130-450,000) Platelet Morphology NORMAL APPEARANCE RBC Morph Micro Appear NORMAL APPEARANCE PT INR Sodium 132 L Potassium 5.0 Chloride 94 L Carbon Dioxide 24 Anion Gap 14.0 H BUN 36 H Creatinine 2.4 H Estimated GFR (MDRD) 26 L Glucose 130 H Estimat Average Glucose Hemoglobin A1c % Lactic Acid Calcium 8.0 L Total Bilirubin 0.9 AST 30 ALT 16 Alkaline Phosphatase 63 B-Natriuretic Peptide Total Protein 6.8 Albumin 3.2 Globulin 3.6 Albumin/Globulin Ratio 0.9 L Urine Color ORANGE Urine Clarity HAZY Urine pH 5.5 Ur Specific [place] 1.015 Urine Protein Urine Glucose (UA) Urine Ketones Urine Occult Blood Urine Nitrite Urine Bilirubin NEGATIVE Urine Urobilinogen Ur Leukocyte Esterase Urine RBC 11-25 H Urine WBC >25 H Ur Squamous Epith Cells NONE SEEN Urine Bacteria Many H Urine Culture Comments INDICATED Nasal Adenovirus (PCR) Nasal B. parapertussis DNA (PCR) Nasal Coronavir 229E PCR Nasal Coronavir HKU1 PCR Nasal Coronavir NL63 PCR Nasal Coronavir OC43 PCR Nasal Enterovir/Rhinovir PCR Nasal Influenza B PCR Nasal Influenza A PCR Nasal Parainfluen 1 PCR Nasal Parainfluen 2 PCR Nasal Parainfluen 3 PCR Nasal Parainfluen 4 PCR Nasal RSV (PCR) Nasal Screen MRSA (PCR) Nasal B.pertussis DNA PCR Nasal C.pneumoniae (PCR) [place] Human Metapneumo PCR Nasal M.pneumoniae (PCR) Nasal SARS-CoV-2 (PCR) 04/12/21 04/12/21 04/12/21 15:55 15:55 17:53 WBC RBC Hgb Hct MCV MCH MCHC RDW Plt Count MPV Neut # (Auto) Lymph # (Auto) [place] # (Auto) Eos # (Auto) Baso # (Auto) Absolute Nucleated RBC Total Counted Band Neuts % (Manual) Abnorm Lymph % (Manual) Nucleated RBC % Neutrophils # (Manual) Lymphocytes # (Manual) Monocytes # (Manual) Eosinophils # (Manual) Basophils # (Manual) Differential Comment WBC Morphology Platelet Estimate Platelet Morphology RBC Morph Micro Appear PT INR Sodium Potassium Chloride Carbon Dioxide Anion Gap BUN Creatinine Estimated GFR (MDRD) Glucose Estimat Average Glucose Hemoglobin A1c % Lactic Acid 3.4 H* Calcium Total Bilirubin AST ALT Alkaline Phosphatase B-Natriuretic Peptide 1285 H Total Protein Albumin Globulin Albumin/Globulin Ratio Urine Color Urine Clarity Urine pH Ur Specific [place] Urine Protein Urine Glucose (UA) Urine Ketones Urine Occult Blood Urine Nitrite Urine Bilirubin Urine Urobilinogen Ur Leukocyte Esterase Urine RBC Urine WBC Ur Squamous Epith Cells Urine Bacteria Urine Culture Comments Nasal Adenovirus (PCR) NOT DETECTED Nasal B. parapertussis DNA (PCR) NOT DETECTED Nasal Coronavir 229E PCR NOT DETECTED Nasal Coronavir HKU1 PCR NOT DETECTED Nasal Coronavir NL63 PCR NOT DETECTED Nasal Coronavir OC43 PCR NOT DETECTED Nasal Enterovir/Rhinovir PCR NOT DETECTED Nasal Influenza B PCR NOT DETECTED Nasal Influenza A PCR NOT DETECTED Nasal Parainfluen 1 PCR NOT DETECTED Nasal Parainfluen 2 PCR NOT DETECTED Nasal Parainfluen 3 PCR NOT DETECTED Nasal Parainfluen 4 PCR NOT DETECTED Nasal RSV (PCR) NOT DETECTED Nasal Screen MRSA (PCR) Nasal B.pertussis DNA PCR NOT DETECTED Nasal C.pneumoniae (PCR) NOT DETECTED [place] Human Metapneumo PCR NOT DETECTED Nasal M.pneumoniae (PCR) NOT DETECTED Nasal SARS-CoV-2 (PCR) NOT DETECTED 04/12/21 04/12/21 04/13/21 19:09 22:59 03:45 WBC RBC Hgb Hct MCV MCH MCHC RDW Plt Count MPV Neut # (Auto) Lymph # (Auto) [place] # (Auto) Eos # (Auto) Baso # (Auto) Absolute Nucleated RBC Total Counted Band Neuts % (Manual) Abnorm Lymph % (Manual) Nucleated RBC % Neutrophils # (Manual) Lymphocytes # (Manual) Monocytes # (Manual) Eosinophils # (Manual) Basophils # (Manual) Differential Comment WBC Morphology Platelet Estimate Platelet Morphology RBC Morph Micro Appear PT INR Sodium Potassium Chloride Carbon Dioxide Anion Gap BUN Creatinine Estimated GFR (MDRD) Glucose Estimat Average Glucose Hemoglobin A1c % Lactic Acid 3.3 H* 2.4 H 2.8 H Calcium Total Bilirubin AST ALT Alkaline Phosphatase B-Natriuretic Peptide Total Protein Albumin Globulin Albumin/Globulin Ratio Urine Color Urine Clarity Urine pH Ur Specific [place] Urine Protein Urine Glucose (UA) Urine Ketones Urine Occult Blood Urine Nitrite Urine Bilirubin Urine Urobilinogen Ur Leukocyte Esterase Urine RBC Urine WBC Ur Squamous Epith Cells Urine Bacteria Urine Culture Comments Nasal Adenovirus (PCR) Nasal B. parapertussis DNA (PCR) Nasal Coronavir 229E PCR Nasal Coronavir HKU1 PCR Nasal Coronavir NL63 PCR Nasal Coronavir OC43 PCR Nasal Enterovir/Rhinovir PCR Nasal Influenza B PCR Nasal Influenza A PCR Nasal Parainfluen 1 PCR Nasal Parainfluen 2 PCR Nasal Parainfluen 3 PCR Nasal Parainfluen 4 PCR Nasal RSV (PCR) Nasal Screen MRSA (PCR) Nasal B.pertussis DNA PCR Nasal C.pneumoniae (PCR) [place] Human Metapneumo PCR Nasal M.pneumoniae (PCR) Nasal SARS-CoV-2 (PCR) 04/13/21 04/13/21 04/13/21 03:45 03:45 03:45 WBC 16.2 H RBC 3.79 L Hgb 10.8 L Hct 35.1 L MCV 92.6 MCH 28.5 MCHC 30.8 L RDW 15.6 H Plt Count 136 MPV 9.7 Neut # (Auto) Not Reportable Lymph # (Auto) Not Reportable [place] # (Auto) Not Reportable Eos # (Auto) Not Reportable Baso # (Auto) Not Reportable Absolute Nucleated RBC Not Reportable Total Counted 100 Band Neuts % (Manual) 3 Abnorm Lymph % (Manual) 0 Nucleated RBC % Not Reportable Neutrophils # (Manual) 14.4 H Lymphocytes # (Manual) 0.6 L Monocytes # (Manual) 0.6 Eosinophils # (Manual) 0.5 Basophils # (Manual) 0.0 Differential Comment MANUAL DIFFERENTIAL WBC Morphology NORMAL APPEARANCE Platelet Estimate NORMAL (130-450,000) Platelet Morphology NORMAL APPEARANCE RBC Morph Micro Appear NORMAL APPEARANCE PT INR Sodium 134 L Potassium 4.5 Chloride 100 L Carbon Dioxide 20 L Anion Gap 14.0 H BUN 39 H Creatinine 2.4 H Estimated GFR (MDRD) 26 L Glucose 102 H Estimat Average Glucose 126 H Hemoglobin A1c % 6.0 Lactic Acid Calcium 7.7 L Total Bilirubin AST ALT Alkaline Phosphatase B-Natriuretic Peptide Total Protein Albumin Globulin Albumin/Globulin Ratio Urine Color Urine Clarity Urine pH Ur Specific [place] Urine Protein Urine Glucose (UA) Urine Ketones Urine Occult Blood Urine Nitrite Urine Bilirubin Urine Urobilinogen Ur Leukocyte Esterase Urine RBC Urine WBC Ur Squamous Epith Cells Urine Bacteria Urine Culture Comments Nasal Adenovirus (PCR) Nasal B. parapertussis DNA (PCR) Nasal Coronavir 229E PCR Nasal Coronavir HKU1 PCR Nasal Coronavir NL63 PCR Nasal Coronavir OC43 PCR Nasal Enterovir/Rhinovir PCR Nasal Influenza B PCR Nasal Influenza A PCR Nasal Parainfluen 1 PCR Nasal Parainfluen 2 PCR Nasal Parainfluen 3 PCR Nasal Parainfluen 4 PCR Nasal RSV (PCR) Nasal Screen MRSA (PCR) Nasal B.pertussis DNA PCR Nasal C.pneumoniae (PCR) [place] Human Metapneumo PCR Nasal M.pneumoniae (PCR) Nasal SARS-CoV-2 (PCR) 04/13/21 04/14/21 04/14/21 12:22 04:50 04:50 WBC 8.2 RBC 3.66 L Hgb 10.1 L Hct 32.1 L MCV 87.7 MCH 27.6 MCHC 31.5 L RDW 15.5 H Plt Count 96 L MPV 9.4 Neut # (Auto) Not Reportable Lymph # (Auto) Not Reportable [place] # (Auto) Not Reportable Eos # (Auto) Not Reportable Baso # (Auto) Not Reportable Absolute Nucleated RBC Not Reportable Total Counted 100 Band Neuts % (Manual) 4 Abnorm Lymph % (Manual) 0 Nucleated RBC % Not Reportable Neutrophils # (Manual) 8.0 H Lymphocytes # (Manual) 0.1 L Monocytes # (Manual) 0.1 Eosinophils # (Manual) 0.1 Basophils # (Manual) 0.0 Differential Comment MANUAL DIFFERENTIAL WBC Morphology NORMAL APPEARANCE Platelet Estimate DECREASED (<130,000) Platelet Morphology NORMAL APPEARANCE RBC Morph Micro Appear 2+ CARLY CELLS PT INR Sodium 132 L Potassium 4.2 Chloride 100 L Carbon Dioxide 22 Anion Gap 10.0 BUN 50 H Creatinine 2.6 H Estimated GFR (MDRD) 23 L Glucose 86 Estimat Average Glucose Hemoglobin A1c % Lactic Acid Calcium 7.6 L Total Bilirubin AST ALT Alkaline Phosphatase B-Natriuretic Peptide Total Protein Albumin Globulin Albumin/Globulin Ratio Urine Color Urine Clarity Urine pH Ur Specific [place] Urine Protein Urine Glucose (UA) Urine Ketones Urine Occult Blood Urine Nitrite Urine Bilirubin Urine Urobilinogen Ur Leukocyte Esterase Urine RBC Urine WBC Ur Squamous Epith Cells Urine Bacteria Urine Culture Comments Nasal Adenovirus (PCR) Nasal B. parapertussis DNA (PCR) Nasal Coronavir 229E PCR Nasal Coronavir HKU1 PCR Nasal Coronavir NL63 PCR Nasal Coronavir OC43 PCR Nasal Enterovir/Rhinovir PCR Nasal Influenza B PCR Nasal Influenza A PCR Nasal Parainfluen 1 PCR Nasal Parainfluen 2 PCR Nasal Parainfluen 3 PCR Nasal Parainfluen 4 PCR Nasal RSV (PCR) Nasal Screen MRSA (PCR) NEGATIVE Nasal B.pertussis DNA PCR Nasal C.pneumoniae (PCR) [place] Human Metapneumo PCR Nasal M.pneumoniae (PCR) Nasal SARS-CoV-2 (PCR) 04/14/21 04:50 WBC RBC Hgb Hct MCV MCH MCHC RDW Plt Count MPV Neut # (Auto) Lymph # (Auto) [place] # (Auto) Eos # (Auto) Baso # (Auto) Absolute Nucleated RBC Total Counted Band Neuts % (Manual) Abnorm Lymph % (Manual) Nucleated RBC % Neutrophils # (Manual) Lymphocytes # (Manual) Monocytes # (Manual) Eosinophils # (Manual) Basophils # (Manual) Differential Comment WBC Morphology Platelet Estimate Platelet Morphology RBC Morph Micro Appear PT 15.3 H INR 1.4 H Sodium Potassium Chloride Carbon Dioxide Anion Gap BUN Creatinine Estimated GFR (MDRD) Glucose Estimat Average Glucose Hemoglobin A1c % Lactic Acid Calcium Total Bilirubin AST ALT Alkaline Phosphatase B-Natriuretic Peptide Total Protein Albumin Globulin Albumin/Globulin Ratio Urine Color Urine Clarity Urine pH Ur Specific [place] Urine Protein Urine Glucose (UA) Urine Ketones Urine Occult Blood Urine Nitrite Urine Bilirubin Urine Urobilinogen Ur Leukocyte Esterase Urine RBC Urine WBC Ur Squamous Epith Cells Urine Bacteria Urine Culture Comments Nasal Adenovirus (PCR) Nasal B. parapertussis DNA (PCR) Nasal Coronavir 229E PCR Nasal Coronavir HKU1 PCR Nasal Coronavir NL63 PCR Nasal Coronavir OC43 PCR Nasal Enterovir/Rhinovir PCR Nasal Influenza B PCR Nasal Influenza A PCR Nasal Parainfluen 1 PCR Nasal Parainfluen 2 PCR Nasal Parainfluen 3 PCR Nasal Parainfluen 4 PCR Nasal RSV (PCR) Nasal Screen MRSA (PCR) Nasal B.pertussis DNA PCR Nasal C.pneumoniae (PCR) [place] Human Metapneumo PCR Nasal M.pneumoniae (PCR) Nasal SARS-CoV-2 (PCR) Microbiology 04/12/21 16:24 Blood - Right Arm Blood Culture - Preliminary Escherichia Coli 04/12/21 15:50 Urine,Clean Catch Urine Culture - Final Escherichia Coli 04/12/21 15:55 Blood Blood Culture - Final Escherichia Coli 04/12/21 16:24 Blood - Right Arm Blood Culture (PCR) - Final E. coli from the urine is resistant to ampicillin, ampicillin/sulbactam, cefazolin, ceftriaxone, ciprofloxacin, levofloxacin, trimethoprim, sulfamethoxazole. It is sensitive to cefepime, ertapenem, gentamicin, imipenem, nitrofurantoin, tobramycin. E. coli from the blood is resistant to ampicillin, ampicillin/sulbactam, ciprofloxacin, levofloxacin. It is sensitive to cefazolin, cefepime, ceftriaxone, ertapenem, gentamicin, imipenem, tobramycin, trime thoprim/sulfamethoxazole. - DIAGNOSTIC IMAGING Diagnostic Imaging Results Comments: CT of the abdomen pelvis without contrast obtained on April 12 showed mild to moderate right kidney hydronephrosis and hydroureter, without a cause of obstruction seen. Bilateral perinephric fat stranding can be seen. Mild atrophy of each kidney. The bladder is decompressed by a Mchugh catheter. The Mchugh bladder is low-lying. Bilobed abdominal aortic aneurysm, measuring 6.1 cm proximal AP and 6 cm distally AP. 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 Distal colectomy, with left lower colostomy. There is herniated fat seen along the colostomy site. - SEPSIS Current Stage of Sepsis: Septic shock Possible source of Sepsis: Genitourinary Sepsis Criteria: Recorded Temperature greater than 38.3C or Less than 36C, Recorded Heart Rate greater than 90 bpm, Recorded Respiratory Rate greater than 20, SCALLOP SHUCKER: altered consciousness (unrelated to primary neuro pathology), SBP less than 90 mmHg, Renal: urine output less than 0.5ml/kg/hr for 2 hours or creatinine gr, Metabolic: lactate > 2 mmol/L - TIME SPENT Time Spent in Discharge (Minutes): 44
[2021-04-14] MEDS ORDERED: CEFEPIME 1 GM in SODIUM CHLORIDE 0.9% MINIBAG 100 ML IV SCH (21:00)
[2021-04-14] MEDS ORDERED: CEFEPIME 2 GM in SODIUM CHLORIDE 0.9% MINIBAG 100 ML IV SCH (21:00)
[2021-04-14] MEDS: IBUPROFEN 400 MG TABLET PO PRN (21:07)
[2021-04-14 22:14] VITALS: BP 100/68
== END 2021-04-14 22:31 | disposition short-term general hospital (02) | DRG 871 ==
LOC: EDUNIT# → SUPCPDRO 15:05 → ED 15:05 → MS2 19:37 → ICU 20:14
PROVIDERS: ADMIT Internal Medicine; ATTEND Internal Medicine
PROC: 02HV33Z Insertion of Infusion Device into Superior Vena Cava, Percutaneous Approach (ICD-10-PCS; principal; 2021-04-14)
DX: A41.9 Sepsis, unspecified organism (principal); T83.511A Infection and inflammatory reaction due to indwelling urethral catheter, initial encounter; N39.0 Urinary tract infection, site not specified; R65.20 Severe sepsis without septic shock; N17.9 Acute kidney failure, unspecified; A41.51 Sepsis due to Escherichia coli [E. coli]; R65.21 Severe sepsis with septic shock; N17.0 Acute kidney failure with tubular necrosis; Z20.822 Contact with and (suspected) exposure to COVID-19; N12 Tubulo-interstitial nephritis, not specified as acute or chronic; Z16.11 Resistance to penicillins; Z16.23 Resistance to quinolones and fluoroquinolones; N13.30 Unspecified hydronephrosis; J96.10 Chronic respiratory failure, unspecified whether with hypoxia or hypercapnia; F10.139 Alcohol abuse with withdrawal, unspecified; I71.4 Abdominal aortic aneurysm, without rupture; R91.8 Other nonspecific abnormal finding of lung field; J43.9 Emphysema, unspecified; I25.10 Atherosclerotic heart disease of native coronary artery without angina pectoris; E11.9 Type 2 diabetes mellitus without complications; R63.4 Abnormal weight loss; Z87.891 Personal history of nicotine dependence; Z95.1 Presence of aortocoronary bypass graft; Z96.0 Presence of urogenital implants; Z85.048 Personal history of other malignant neoplasm of rectum, rectosigmoid junction, and anus; Z85.46 Personal history of malignant neoplasm of prostate; Z90.49 Acquired absence of other specified parts of digestive tract; Z93.3 Colostomy status; R41.0 Disorientation, unspecified; I95.9 Hypotension, unspecified; I72.3 Aneurysm of iliac artery; Z79.84 Long term (current) use of oral hypoglycemic drugs; R32 Unspecified urinary incontinence; Z66 Do not resuscitate; Z68.22 Body mass index [BMI] 22.0-22.9, adult
CPT/HCPCS: 36415; 51702; 71045; 74176; 80048; 80053; 81001; 83036; 83605; 83880; 85025; 85610; 87040; 87086; 87150; 87181; 87631; 87640; 94640; 96361; 96365; 96366; 99285; 99291; A9270; J1200; J7120; J7626; 0202U